=== PATIENT | male | born 1930 | race Two or more races ===

== ENCOUNTER 2016-07-07 21:06 | Inpatient (IN) | payer MEDICARE, MEDICAID ==
[~2016-07-07] VITALS: Ht 162.6 cm; Wt 65.3 kg
[~2016-07-07 21:06] MED LIST: ASPI81TA31 PO; CALC-822 PO; FINA5TAB3 PO; METF-494 PO; OMEP20CA10 PO; OXYB10TA4 PO; SIMV40TA5 PO; TAMS-3 PO
[2016-07-07] MEDS ORDERED: ONDANSETRON 4 MG/2 ML VIAL IV ONE (22:00)
[2016-07-07] MEDS ORDERED: MORPHINE SULFATE 2 MG/1 ML DISP.SYRIN IV ONE ×3 (22:00→23:00)
[2016-07-07] MEDS ORDERED: LEVO5TAB13 PO (22:03)
[2016-07-07] MEDS ORDERED: ONDANSETRON 4 MG/2 ML VIAL ONE (22:17)
[2016-07-07] MEDS ORDERED: MORPHINE SULFATE 2 MG/1 ML DISP.SYRIN ONE ×3 (22:17→23:06)
[2016-07-07 22:21] LABS: CALCIUM 8.7 mg/dL (8.5-10.1); POTASSIUM 4.7 mmol/L (3.5-5.1)
[2016-07-07 22:28] LABS: ALBUMIN 3.7 g/dL (3.4-5.0); BILIRUBIN,DIRECT 0.1 mg/dL (0.0-0.2); BILIRUBIN,TOTAL 0.3 mg/dL (0.2-1.0); TOTAL PROTEIN, SERUM 7.7 g/dL (6.4-8.2)
[2016-07-07 22:33] LABS: HEMATOCRIT 26.1 % (40.0-50.0); MEAN CORPUSCULAR HEMOGLOBIN 18.3 uug (27.0-31.0); MEAN CORPUSCULAR HGB CONC 31 g/dL (32.0-37.0); MEAN CORPUSCULAR VOLUME 59.8 fL (82.0-92.0); PLATELET COUNT (AUTO) 202 K/uL (150-450); RED BLOOD CELL COUNT(AUTO) 4.37 MIL/uL (4.70-6.10); RED CELL DISTRIBUTION WIDTH 18.4 % (11.5-14.5); WHITE BLOOD COUNT (AUTO) 5.2 K/uL (4.0-11.2)
[2016-07-07 22:51] LABS: EOSINOPHILS % (MANUAL) 3 % (0-8); LYMPHOCYTES % (MANUAL) 32 % (20-40); MONOCYTES % (MANUAL) 14 % (2-10); NEUTROPHILS % (MANUAL) 51 % (42-75); PLATELET ESTIMATE ADEQUATE
[2016-07-07 22:52] LABS: ANISOCYTOSIS 1+; HYPOCHROMASIA 1+; OVALOCYTES 1+
[2016-07-08 00:52] LABS: *BILIRUBIN,URIN NEGATIVE (NEGATIVE); *BLOOD, URINE NEGATIVE (NEGATIVE); *CLARITY,URINE CLEAR (CLEAR); *COLOR,URINE YELLOW (YELLOW); *KETONES,URINE NEGATIVE (NEGATIVE); *PROTEIN,URINE NEGATIVE (NEGATIVE); *UROBILINOGEN,URINE 0.2 E.U./dl (NORMAL); LEUKOCYTE ESTERASE ,URINE NEGATIVE (NEGATIVE); NITRITE, URINE NEGATIVE (NEGATIVE); UGLUCOSE NEGATIVE (NEGATIVE)
[2016-07-08 01:25] LABS: BACTERIA,URINE FEW /HPF (NONE SEEN); RBC,URINE 0-3 /HPF (0-3); SQUAMOUS EPITHELIAL CELL,UR FEW /HPF (NONE SEEN); WBC,URINE 0-3 /HPF (0-3)
[2016-07-08] MEDS ORDERED: ONDANSETRON 4 MG/2 ML VIAL ONE (01:41)
[2016-07-08] MEDS ORDERED: MORPHINE SULFATE 4 MG/1 ML DISP.SYRIN ONE (01:41)
[2016-07-08] MEDS ORDERED: ONDANSETRON 4 MG/2 ML VIAL IV ONE (01:45)
[2016-07-08] MEDS ORDERED: MORPHINE SULFATE 4 MG/1 ML DISP.SYRIN IV ONE (01:45)
[2016-07-08] MEDS ORDERED: HYDROMORPHONE 1 MG/1 ML DISP.SYRIN ONE (02:22)
[2016-07-08] MEDS ORDERED: HYDROMORPHONE 1 MG/1 ML DISP.SYRIN IV ONE (02:30)
--- NOTE | 2016-07-08 02:32 | NUR ---
Call placed to Devaughn Cantor MD on phone with KERRY PUENTES
--- NOTE | 2016-07-08 02:33 | NUR ---
call placed to 2nd floor to obtain a bed. Call back pending.
[2016-07-08 03:09] VITALS: BP 176/73
--- NOTE | 2016-07-08 03:13 | NUR ---
Pt. admitted to Telemetry , under care of STEVEN Bolaños Belongs List completed.
--- NOTE | 2016-07-08 03:30 | NUR ---
patient admitted from ED with diagnosis of neckpain, A/A/OX4, Farsi speaking, denies c/o pain at this time, resp even and unlabored, no SOB/congestion noted, kept comfortable, instructed on use of call light. call light within reach, needs attended.
[2016-07-08] MEDS ORDERED: MAGNESIUM HYDROXIDE 30 ML LIQUID UDC PO PRN (03:45)
[2016-07-08] MEDS ORDERED: ONDANSETRON 4 MG/2 ML VIAL IV PRN (03:45)
[2016-07-08] MEDS ORDERED: MORPHINE SULFATE 2 MG/1 ML DISP.SYRIN IV PRN (03:45)
[2016-07-08] MEDS ORDERED: ACETAMINOPHEN 325 MG TABLET PO PRN (03:45)
[2016-07-08] MEDS ORDERED: Z GUARD REMEDY PASTE 57 GM TUBE TOP PRN (03:45)
[2016-07-08 04:00] VITALS: BP 157/66
[2016-07-08 06:42] LABS: BASOPHILS # (AUTO) 0.1 K/uL (0.0-0.2); BASOPHILS % (AUTO) 1.2 % (0.0-2.0); EOSINOPHILS # (AUTO) 0.1 K/uL (0.0-0.7); EOSINOPHILS % (AUTO) 1.9 % (0.0-7.0); HEMATOCRIT 25.8 % (40.0-50.0); HEMOGLOBIN 7.7 g/dL (14.0-18.0); LYMPHOCYTES # (AUTO) 1.3 K/uL (0.8-4.8); LYMPHOCYTES % (AUTO) 26.6 % (20.5-51.5); MEAN CORPUSCULAR HGB CONC 30 g/dL (32.0-37.0); MEAN CORPUSCULAR VOLUME 60.4 fL (82.0-92.0); MONOCYTES # (AUTO) 0.4 K/uL (0.1-1.30); MONOCYTES % (AUTO) 8.3 % (0.0-11.0); PLATELET COUNT (AUTO) 199 K/uL (150-450); RED BLOOD CELL COUNT(AUTO) 4.27 MIL/uL (4.70-6.10); WHITE BLOOD COUNT (AUTO) 4.9 K/uL (4.0-11.2)
[2016-07-08 07:27] LABS: THYROID STIMULATING HORMONE 3.415 mIU/mL (0.358-3.740)
[2016-07-08 07:28] LABS: EOSINOPHILS % (MANUAL) 2 % (0-8); LYMPHOCYTES % (MANUAL) 23 % (20-40); MONOCYTES % (MANUAL) 7 % (2-10); NEUTROPHILS % (MANUAL) 68 % (42-75)
[2016-07-08 07:29] LABS: ANISOCYTOSIS 2+; HYPOCHROMASIA 2+; PLATELET ESTIMATE ADEQUATE
[2016-07-08 07:33] LABS: ALBUMIN 3.5 g/dL (3.4-5.0); BILIRUBIN,TOTAL 0.4 mg/dL (0.2-1.0); CALCIUM 8.7 mg/dL (8.5-10.1); MAGNESIUM 1.9 mg/dL (1.8-2.4); PHOSPHOROUS 3.5 mg/dL (2.5-4.9); POTASSIUM 4.3 mmol/L (3.5-5.1); TOTAL PROTEIN, SERUM 6.8 g/dL (6.4-8.2)
[2016-07-08] MEDS: ASPIRIN 81 MG TAB.CHEW PO SCH (08:11)
[2016-07-08] MEDS: METFORMIN HCL 500 MG TABLET PO SCH ×2 (08:11→17:11)
[2016-07-08] MEDS: CALCIUM CARB/VITAMIN D 250MG-125UNITS TABLET PO SCH (08:11)
[2016-07-08] MEDS: PANTOPRAZOLE SODIUM 40 MG TABLET.DR PO SCH (08:11)
[2016-07-08] MEDS: OXYBUTYNIN XL 5 MG TABSR PO SCH (08:12)
[2016-07-08] MEDS ORDERED: Medication Not On Formulary EA (Omeprazole 20 MG) PO SCH (09:00)
[2016-07-08] MEDS ORDERED: CALCIUM CITRATE PO SCH (09:00)
[2016-07-08] MEDS ORDERED: [UNRECOGNIZED DRUG - OTHER] PO SCH (09:00)
[2016-07-08] MEDS ORDERED: VITAMIN D3 PO SCH (09:00)
[2016-07-08] MEDS ORDERED: LORATADINE 10 MG TABLET PO PRN (10:30)
[2016-07-08] MEDS: TAMSULOSIN HCL 0.4 MG CAP.SR.24H PO SCH ×2 (11:06→16:16)
[2016-07-08 12:02] VITALS: BP 106/45
[2016-07-08 16:08] VITALS: BP 125/57
--- NOTE | 2016-07-08 17:52 | NUR ---
pt went to [facility] for mri via ambulances in stable condition,
--- NOTE | 2016-07-08 19:45 | NUR ---
ARRIVED FROM [facility] FOR MRI. USHERED TO ROOM PLACED COMFORTABLY ON BED, FAMILY MEMBERS AT BEDSIDE. NO ACUTE DISTRESS NOTED. CALL LIGHT WITHIN REACH. WILL CONTINUE TO MONITOR
[2016-07-08 20:00] VITALS: BP 155/79
--- NOTE | 2016-07-08 20:30 | NUR ---
RECEIVED A CALL FROM RADIOLOGY IN REGARDS TO MRI RESULT. CALLED DR. HELLER, LEFT A MESSAGE. AWAITING FOR CALL BACK. PATIENT IN ROOM, NO ACUTE DISTRESS NOTED. ABLE TO MAKE NEEDS KNOWN
[2016-07-08] MEDS ORDERED: Medication Not On Formulary EA (Levocetirizine Dihydrochloride 5 MG) PO SCH (21:00)
[2016-07-08] MEDS: FINASTERIDE 5 MG TABLET PO SCH (21:10)
[2016-07-08] MEDS: SIMVASTATIN 40 MG TABLET PO SCH (21:11)
--- NOTE | 2016-07-08 21:30 | NUR ---
STILL NO CALL BACK FROM DR. HELLER, PAGED DR. AAYUSH MAX
--- NOTE | 2016-07-08 21:50 | NUR ---
RELAY MRI RESULTS TO DR. LOONEY, NO NEW ORDERS AT THIS TIME. WILL CONTINUE TO MONITOR
[2016-07-09] VITALS (9 sets, daily range): BP systolic 120–155; BP diastolic 46–74
--- NOTE | 2016-07-09 06:13 | NUR ---
NO ACUTE DISTRESS NOTED DURING THE SHIFT. NO S/SX OF BLEEDING NOTED. FARSI SPEAKING BUT ABLE TO UNDERSTAND SIMPLE BELIZEAN. ABLE TO FOLLOW COMMANDS. NEURO CHECK DONE. ALL DUE MEDS GIVEN ORDERED. KEPT COMFORTABLE AT ALL TIMES. CALL LIGHT WITHIN REACH Addendum: 07/09/16 at 0619 by ANDREI MCGINNIS RN ON TELE WITH SINUS RHYTHM
[2016-07-09] MEDS: PANTOPRAZOLE SODIUM 40 MG TABLET.DR PO SCH (06:21)
[2016-07-09 07:32] LABS: BASOPHILS % (AUTO) 0.7 % (0.0-2.0); CALCIUM 8.8 mg/dL (8.5-10.1); CREATININE 0.9 mg/dL (0.6-1.3); EOSINOPHILS # (AUTO) 0.1 K/uL (0.0-0.7); EOSINOPHILS % (AUTO) 3.1 % (0.0-7.0); HEMATOCRIT 26.2 % (40.0-50.0); HEMOGLOBIN 7.9 g/dL (14.0-18.0); LYMPHOCYTES # (AUTO) 1.3 K/uL (0.8-4.8); LYMPHOCYTES % (AUTO) 27.9 % (20.5-51.5); MEAN CORPUSCULAR HGB CONC 30 g/dL (32.0-37.0); MEAN CORPUSCULAR VOLUME 60.1 fL (82.0-92.0); MONOCYTES # (AUTO) 0.4 K/uL (0.1-1.30); MONOCYTES % (AUTO) 8.2 % (0.0-11.0); NEUTROPHILS # (AUTO) 2.7 K/uL (1.8-8.9); NEUTROPHILS % (AUTO) 60.1 % (38.5-71.5); PLATELET COUNT (AUTO) 212 K/uL (150-450); RED BLOOD CELL COUNT(AUTO) 4.36 MIL/uL (4.70-6.10); RED CELL DISTRIBUTION WIDTH 18.8 % (11.5-14.5); WHITE BLOOD COUNT (AUTO) 4.5 K/uL (4.0-11.2)
--- NOTE | 2016-07-09 08:00 | NUR ---
Awake, alert, oriented x 4, complaining of neck pain. 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
[2016-07-09] MEDS: METFORMIN HCL 500 MG TABLET PO SCH ×2 (09:00→17:47)
[2016-07-09] MEDS: ASPIRIN 81 MG TAB.CHEW PO SCH (09:00)
[2016-07-09] MEDS: CALCIUM CARB/VITAMIN D 250MG-125UNITS TABLET PO SCH (09:01)
[2016-07-09] MEDS: TAMSULOSIN HCL 0.4 MG CAP.SR.24H PO SCH ×2 (09:01→17:46)
[2016-07-09] MEDS: OXYBUTYNIN XL 5 MG TABSR PO SCH (09:01)
[2016-07-09] MEDS: HYDROCODONE/APAP 5-325MG TABLET PO PRN (09:02)
[2016-07-09 10:56] LABS: ANISOCYTOSIS 2+; HYPOCHROMASIA 3+
[2016-07-09 10:57] LABS: OVALOCYTES 2+
[2016-07-09 11:00] LABS: STOMATOCYTES 1+; TARGET CELLS 1+
--- NOTE | 2016-07-09 12:28 | NUR ---
Still with neck pain/headache not relieved with [place]. Morphine IV given as ordered
[2016-07-09] MEDS ORDERED: GOLYTELY 4000 ML BOTTLE PO ONE (12:30)
[2016-07-09] MEDS ORDERED: MAGNESIUM CITRATE 296 ML BOTTLE PO ONE (12:30)
[2016-07-09] MEDS ORDERED: KETOROLAC TROMETHAMINE 15 MG INJ IVP ONE (14:00)
--- NOTE | 2016-07-09 14:03 | NUR ---
Dr. Linares seen and examined patient, spoke with spouse and daughter. Still with neck pain/headache. Toradol given as ordered with relief
--- NOTE | 2016-07-09 16:48 | NUR ---
Hgb 7.9/ Hct 26.2. Dr. Sifuentes with orders for 1 unit of PRBC started. For EGD/Colonoscopy tomorrow, consent signed by patient. Bowel prep started
--- NOTE | 2016-07-09 18:31 | NUR ---
PRBC transfusing, no reaction noted. Endorsed for further care
--- NOTE | 2016-07-09 19:30 | NUR ---
BLOOD TRANSFUSION STILL ONGOING. FAMILY MEMBERS AT BEDSIDE. NO ADVERSE REACTION NOTED. WILL CONTINUE TO MONITOR V/S. ENCOURAGED TO FINISH GOLYTELY. AWARE ABOUT EGD AND COLONOSCOPY FOR TOMORROW. CALL LIGHT WITHIN REACH. WILL CONTINUE TO MONITOR
--- NOTE | 2016-07-09 20:01 | NUR ---
BLOOD TRANSFUSION FINISHED. TOLERATED WELL. V/S STABLE. NO ADVERSE REACTION NOTED. WILL CONTINUE TO MONITOR
--- NOTE | 2016-07-09 20:30 | NUR ---
STOOL SPECIMEN SENT TO LAB
[2016-07-09] MEDS: SIMVASTATIN 40 MG TABLET PO SCH (21:07)
[2016-07-09] MEDS: FINASTERIDE 5 MG TABLET PO SCH (21:07)
[2016-07-09 22:01] LABS: *OCCULT BLOOD STOOL NEGATIVE (NEGATIVE)
--- NOTE | 2016-07-09 22:45 | NUR ---
FINISHED GOLYTELY ORDERED. TOLERATED WELL. ASSISTED TO RESTROOM. WILL CONTINUE TO MONITOR
[2016-07-10 04:28] VITALS: BP 133/63
--- NOTE | 2016-07-10 06:33 | NUR ---
PATIENT HAD SEVERAL BOWEL MOVEMENTS. NOW BOWEL MOVEMENT CLEAR, SEEN BY RN AND BEDSIDE NURSE. KEPT ON NPO POST MIDNIGHT. CONSENTS SIGNED. BOWEL PREP DONE. KEPT COMFORTABLE AT ALL TIMES. NEEDS ATTENDED. FAMILY MEMBER AT BEDSIDE. CALL LIGHT WITHIN REACH
[2016-07-10] MEDS: PANTOPRAZOLE SODIUM 40 MG TABLET.DR PO SCH (07:00)
--- NOTE | 2016-07-10 07:15 | NUR ---
Patient went down for EGD /Colonoscopy with OR staff.
[2016-07-10] MEDS ORDERED: LIDOCAINE HCL 1% 20 ML VIAL MC ONE (07:27)
[2016-07-10] MEDS ORDERED: IV LACTATED RINGERS SOLUTION 1,000 ML BAG MC ONE (07:27)
[2016-07-10] MEDS ORDERED: PROPOFOL 200 MG/20 ML BOTTLE IV ONE (07:27)
--- NOTE | 2016-07-10 08:40 | NUR ---
Patient returned to unit with two RNs from OR. Patient EGD found unremarkable only noting gastritis. Rectal biopsy done. Patient had minimal bleeding (~15 mls) from rectum when ambulating from bed to bathroom. Patient has at the bedside.
[2016-07-10] MEDS: ASPIRIN 81 MG TAB.CHEW PO SCH (08:59)
[2016-07-10] MEDS: CALCIUM CARB/VITAMIN D 250MG-125UNITS TABLET PO SCH (08:59)
[2016-07-10] MEDS: OXYBUTYNIN XL 5 MG TABSR PO SCH (08:59)
[2016-07-10] MEDS: METFORMIN HCL 500 MG TABLET PO SCH (08:59)
[2016-07-10] MEDS: TAMSULOSIN HCL 0.4 MG CAP.SR.24H PO SCH (08:59)
[2016-07-10 11:17] VITALS: BP 143/65
[2016-07-10 11:51] LABS: BASOPHILS % (AUTO) 0.7 % (0.0-2.0); EOSINOPHILS # (AUTO) 0.1 K/uL (0.0-0.7); EOSINOPHILS % (AUTO) 1.6 % (0.0-7.0); HEMATOCRIT 32.8 % (40.0-50.0); HEMOGLOBIN 9.8 g/dL (14.0-18.0); LYMPHOCYTES # (AUTO) 1.1 K/uL (0.8-4.8); LYMPHOCYTES % (AUTO) 20.3 % (20.5-51.5); MEAN CORPUSCULAR HEMOGLOBIN 18.6 uug (27.0-31.0); MEAN CORPUSCULAR HGB CONC 30 g/dL (32.0-37.0); MEAN CORPUSCULAR VOLUME 62.3 fL (82.0-92.0); MONOCYTES # (AUTO) 0.6 K/uL (0.1-1.30); MONOCYTES % (AUTO) 10.4 % (0.0-11.0); NEUTROPHILS # (AUTO) 3.8 K/uL (1.8-8.9); PLATELET COUNT (AUTO) 240 K/uL (150-450); RED BLOOD CELL COUNT(AUTO) 5.27 MIL/uL (4.70-6.10); WHITE BLOOD COUNT (AUTO) 5.6 K/uL (4.0-11.2)
[2016-07-10 12:42] LABS: ANISOCYTOSIS 3+; HYPOCHROMASIA 3+; LYMPHOCYTES % (MANUAL) 21 % (20-40); MONOCYTES % (MANUAL) 11 % (2-10); NEUTROPHILS % (MANUAL) 68 % (42-75); PLATELET ESTIMATE ADEQUATE
[2016-07-10] MEDS: HYDROCODONE/APAP 5-325MG TABLET PO PRN (14:01)
--- NOTE | 2016-07-10 14:12 | NUR ---
Patient discharged from unit with . Patient in no noted distress. Calm and cooperative. Compliant with care. Educated regarding discharge plan including medication regimen. health services coordinator assisted with translation. Patient verbalizes understanding.
[2016-07-10 15:12] VITALS: BP 143/65
== END 2016-07-10 13:35 | disposition home or self-care (01) | DRG 393 ==
LOC: ER 21:06 → MED 07-08 02:48 → TELE 07-08 03:01 → MED 07-09 13:20
PROVIDERS: ADMIT Contractor
PROC: 30233N1 Transfusion of Nonautologous Red Blood Cells into Peripheral Vein, Percutaneous Approach (ICD-10-PCS; 2016-07-09)
PROC: 0DBP8ZX Excision of Rectum, Via Natural or Artificial Opening Endoscopic, Diagnostic (ICD-10-PCS; 2016-07-10)
PROC: 0DBB8ZX Excision of Ileum, Via Natural or Artificial Opening Endoscopic, Diagnostic (ICD-10-PCS; 2016-07-10)
PROC: 0DB68ZX Excision of Stomach, Via Natural or Artificial Opening Endoscopic, Diagnostic (ICD-10-PCS; principal; 2016-07-10 07:27)
PROC: 0DBM8ZX Excision of Descending Colon, Via Natural or Artificial Opening Endoscopic, Diagnostic (ICD-10-PCS; 2016-07-10 07:27)
DX: K55.9 Vascular disorder of intestine, unspecified (principal); I63.9 Cerebral infarction, unspecified; K62.6 Ulcer of anus and rectum; K29.70 Gastritis, unspecified, without bleeding; R51 Headache; E11.9 Type 2 diabetes mellitus without complications; I10 Essential (primary) hypertension; N40.0 Benign prostatic hyperplasia without lower urinary tract symptoms; K21.9 Gastro-esophageal reflux disease without esophagitis; D50.9 Iron deficiency anemia, unspecified; E03.9 Hypothyroidism, unspecified; E78.5 Hyperlipidemia, unspecified; K64.1 Second degree hemorrhoids; B96.81 Helicobacter pylori [H. pylori] as the cause of diseases classified elsewhere
CPT/HCPCS: 36415; 43235; 70030-TC; 70450; 70551; 71010; 72125; 83550; 83735; 84100; 84443; 85002; 85025; 85730; 86850; 86900; 86901; 86920; 93005; A4217; A4663; J1170; J1885; J2270; J2405; J3490; J7050; J7120; P9016-BL; P9021

== ENCOUNTER 2017-05-11 18:50 | Inpatient (IN) | payer MEDICARE, OTHER ==
[~2017-05-11] VITALS: Ht 167.6 cm; Wt 62.1 kg
[~2017-05-11 18:50] MED LIST changes: -ASPI81TA31 PO; +LEVO5TAB13 PO
[2017-05-11] MEDS ORDERED: MECL12.582 PO (19:12)
--- NOTE | 2017-05-11 19:35 | NUR ---
Pt is noted alert, responsive as report is received from the off going nurse that came in c/o Headache x4days and s/p dizziness. His care continue while monitor.
[2017-05-11 20:08] LABS: BASOPHILS # (AUTO) 0.1 K/uL (0.0-8.0); BASOPHILS % (AUTO) 0.8 % (0.0-2.0); EOSINOPHILS # (AUTO) 0.1 K/uL (0.0-0.7); EOSINOPHILS % (AUTO) 0.9 % (0.0-7.0); HEMATOCRIT 40.6 % (36.7-47.1); HEMOGLOBIN 14.1 g/dL (12.5-16.3); LYMPHOCYTES # (AUTO) 1.5 K/uL (20.0-40.0); LYMPHOCYTES % (AUTO) 16.7 % (20.5-51.5); MEAN CORPUSCULAR HGB CONC 35 g/dL (32.5-36.3); MEAN CORPUSCULAR VOLUME 92.4 fL (73.0-96.2); MONOCYTES # (AUTO) 0.6 K/uL (2.0-10.0); NEUTROPHILS # (AUTO) 6.6 K/uL (1.8-8.9); NEUTROPHILS % (AUTO) 74.6 % (38.5-71.5); PLATELET COUNT (AUTO) 153 K/uL (152-348); WHITE BLOOD COUNT (AUTO) 8.8 K/uL (3.6-10.2)
[2017-05-11 20:20] LABS: CARBON DIOXIDE 29 mmol/L (21-32); CHLORIDE 102 mmol/L (98-107); CREATININE 0.8 mg/dL (0.6-1.3); GLUCOSE 113 mg/dL (74-106); UREA NITROGEN, BLOOD 21 mg/dL (7-18)
[2017-05-11 20:26] LABS: ALANINE AMINOTRANSFERASE 25 U/L (16-63); ALKALINE PHOSPHATASE 75 U/L (50-136); ASPARTATE AMINOTRANSFERASE 12 U/L (15-37); BILIRUBIN,DIRECT 0.1 mg/dL (0.0-0.2); BILIRUBIN,TOTAL 0.6 mg/dL (0.2-1.0); TOTAL PROTEIN, SERUM 6.4 g/dL (6.4-8.2)
--- NOTE | 2017-05-11 21:25 | NUR ---
Pt is noted off the unit to CT. his care continue.
[2017-05-11 21:26] LABS: *BILIRUBIN,URIN NEGATIVE (NEGATIVE); *BLOOD, URINE NEGATIVE (NEGATIVE); *CLARITY,URINE SLIGHTLY CLOUDY (CLEAR); *COLOR,URINE YELLOW (YELLOW); *KETONES,URINE NEGATIVE (NEGATIVE); *PROTEIN,URINE NEGATIVE (NEGATIVE); *UROBILINOGEN,URINE 0.2 E.U./dl (NORMAL); LEUKOCYTE ESTERASE ,URINE NEGATIVE (NEGATIVE); NITRITE, URINE NEGATIVE (NEGATIVE); PH,URINE 5.5 (5.0-8.0); UGLUCOSE NEGATIVE (NEGATIVE)
[2017-05-11 21:31] LABS: BACTERIA,URINE NONE SEEN /HPF (NONE SEEN); RBC,URINE 0-3 /HPF (0-3); SQUAMOUS EPITHELIAL CELL,UR NONE SEEN /HPF (NONE SEEN); WBC,URINE 0-3 /HPF (0-3)
--- NOTE | 2017-05-11 23:00 | NUR ---
Pt remain full code with as CT is done. His care continue as awaits Test results.
[2017-05-11] MEDS ORDERED: MECLIZINE HCL 12.5 MG TABLET PO PRN (23:15)
[2017-05-11] MEDS ORDERED: HYDROCODONE/APAP 5-325MG TABLET PO PRN (23:15)
[2017-05-11] MEDS ORDERED: ONDANSETRON 4 MG/2 ML VIAL IV PRN (23:15)
[2017-05-11] MEDS ORDERED: TEMAZEPAM 15 MG CAPSULE PO PRN (23:15)
[2017-05-11] MEDS ORDERED: TAMSULOSIN HCL 0.4 MG CAP.SR.24H PO SCH (23:15)
[2017-05-11] MEDS ORDERED: MAGNESIUM HYDROXIDE 30 ML LIQUID UDC PO PRN (23:15)
[2017-05-11] MEDS ORDERED: ACETAMINOPHEN 325 MG TABLET PO PRN (23:15)
--- NOTE | 2017-05-11 23:40 | NUR ---
Pt remain alert, responsive as new orders noted for pt to be admitted top Tele under the care off DR. Baker . His care continue.
--- NOTE | 2017-05-11 23:45 | NUR ---
Pt is noted resting in bed as report is given to the 2nd floor receiving nurse as pt is been [facility] under the care off DR. Malone. His care continue .
--- NOTE | 2017-05-12 00:10 | NUR ---
Pt is noted off the unit to 2nd floor room 209 as he is been admitted .
[2017-05-12 00:37] VITALS: BP 126/54
--- NOTE | 2017-05-12 00:40 | NUR ---
PATIENT IS ASLEEP WITH NO SIGNS OR SYMPTOMS OF PAIN OR DISCOMFORT. NO RESPIRATORY DISTRESS. CALL LIGHT WITHIN REACH
[2017-05-12] MEDS ORDERED: INFLUENZA VACCINE 2017-2018 0.5 ML DISP.SYRIN IM ONE (02:00)
[2017-05-12] MEDS ORDERED: TAMSULOSIN HCL 0.4 MG CAP.SR.24H ONE (02:14)
[2017-05-12] MEDS ORDERED: HYDROCODONE/APAP 5-325MG TABLET ONE (02:25)
[2017-05-12 04:00] VITALS: BP 104/51
[2017-05-12] MEDS ORDERED: PANTOPRAZOLE SODIUM 40 MG TABLET.DR PO SCH (07:00)
[2017-05-12] MEDS ORDERED: TEMAZEPAM 7.5 MG CAPSULE PO PRN (07:30)
[2017-05-12 07:38] LABS: THYROID STIMULATING HORMONE 1.574 mIU/mL (0.358-3.740)
--- NOTE | 2017-05-12 08:00 | NUR ---
AWAKE ALERT SOME ROMANSH MOSTLY FARSI IS AT THE BEDSIDE AT THIS TIME ASSISTED TO THE BATHROOM AND VOIDING WELL DENIES PAIN OR DISCOMFORTS NOT IN DISTRESS AT THIS TIME.
[2017-05-12 08:02] LABS: ALANINE AMINOTRANSFERASE 20 U/L (16-63); ALKALINE PHOSPHATASE 65 U/L (50-136); ASPARTATE AMINOTRANSFERASE 21 U/L (15-37); BILIRUBIN,TOTAL 0.5 mg/dL (0.2-1.0); CARBON DIOXIDE 30 mmol/L (21-32); CHLORIDE 104 mmol/L (98-107); CHOLESTEROL 171 mg/dL (<200); CREATININE 0.8 mg/dL (0.6-1.3); GLUCOSE 109 mg/dL (74-106); HDL CHOLESTEROL 76 mg/dL (40-60); MAGNESIUM 1.9 mg/dL (1.8-2.4); PHOSPHOROUS 3.9 mg/dL (2.5-4.9); POTASSIUM 4.5 mmol/L (3.5-5.1); TRIGLYCERIDES 73 MG/DL (30-150); UREA NITROGEN, BLOOD 20 mg/dL (7-18)
[2017-05-12 08:14] LABS: BASOPHILS % (AUTO) 0.6 % (0.0-2.0); EOSINOPHILS # (AUTO) 0.1 K/uL (0.0-0.7); EOSINOPHILS % (AUTO) 1.1 % (0.0-7.0); HEMATOCRIT 40.6 % (36.7-47.1); HEMOGLOBIN 13.9 g/dL (12.5-16.3); LYMPHOCYTES # (AUTO) 1.3 K/uL (20.0-40.0); MEAN CORPUSCULAR HEMOGLOBIN 31.5 uug (23.8-33.4); MEAN CORPUSCULAR HGB CONC 34 g/dL (32.5-36.3); MEAN CORPUSCULAR VOLUME 92.3 fL (73.0-96.2); MONOCYTES # (AUTO) 0.5 K/uL (2.0-10.0); MONOCYTES % (AUTO) 7.6 % (0.0-11.0); NEUTROPHILS # (AUTO) 4.9 K/uL (1.8-8.9); NEUTROPHILS % (AUTO) 71.7 % (38.5-71.5); PLATELET COUNT (AUTO) 146 K/uL (152-348); WHITE BLOOD COUNT (AUTO) 6.8 K/uL (3.6-10.2)
[2017-05-12] MEDS ORDERED: CALCIUM CITRATE PO SCH (09:00)
[2017-05-12] MEDS ORDERED: ASPIRIN EC 325 MG TABLET.DR PO SCH (09:00)
[2017-05-12] MEDS ORDERED: [UNRECOGNIZED DRUG - OTHER] PO SCH (09:00)
[2017-05-12] MEDS ORDERED: VITAMIN D3 PO SCH (09:00)
[2017-05-12] MEDS ORDERED: OXYBUTYNIN XL 5 MG TABSR PO SCH (09:00)
[2017-05-12] MEDS ORDERED: CALCIUM CITRA-VITAMIN D 315 MG-250 UNITS TABLET PO SCH (09:00)
[2017-05-12 09:08] LABS: IRON, SERUM 83 ug/dL (50-175)
--- NOTE | 2017-05-12 09:45 | NUR ---
SPOKE WITH PATIENTS AT THE BEDSIDE RE STATUS OF PNEUMONIA/FLU VACCINES LAST TAKEN AND SHE STATED THAT PATIENT TOOK BOTH VACCINES IN MARCH OF 2017 PHARMACY NOTIFIED ALSO STATED THAT HER PHARMACY IS [facility] HERE AT [place].
--- NOTE | 2017-05-12 10:00 | NUR ---
ECHO COMPLETED ORDERED WITH 55 %EF AT THIS TIME IS AT THE BEDSIDE.
[2017-05-12] MEDS ORDERED: INSULIN REGULAR, HUMAN 300 UNIT/3 ML VIAL SQ PRN (10:15)
[2017-05-12] MEDS ORDERED: DEXTROSE 50% 50 ML DISP.SYRIN IV PRN (10:15)
[2017-05-12 11:13] VITALS: BP 114/51
[2017-05-12] MEDS ORDERED: BLOOD SUGAR DIAGNOSTIC 1 EACH STRIP VI SCH (11:30)
[2017-05-12] MEDS ORDERED: PNEUMOCOCCAL 23-VAL P-SAC VAC 0.5 ML VIAL IM ONE (13:00)
--- NOTE | 2017-05-12 14:07 | NUR ---
PATIENT SEEN AND EXAMINED BY LOAN DRYWALL APPLICATION SUPERVISOR WITH NEW ORDERS AND NOTED
[2017-05-12 15:14] VITALS: BP 108/45
--- NOTE | 2017-05-12 15:40 | NUR ---
PATIENT AND HIS WANTS TO LEAVE AGAINST MEDICAL ADVISE AND LOAN FENDER FINISHER SPOKE WITH PATIENT AND HIS AND ALSO THE COBBLER SOLE NOTIFIED THEY ARE INSISTENT ON LEAVING AGAINST MEDICAL ADVISE
--- NOTE | 2017-05-12 16:00 | NUR ---
AMA FORMS COMPLETED BY HIM AND HIS AND DAUGHTER IS AT THE BEDSIDE AND PATIENT STATED DOES NOT WANT TO WAIT FOR DISCHARGE PAPER WORK JUST WANT TO LEAVE.
--- NOTE | 2017-05-12 16:05 | NUR ---
PATIENT LEFT GAURAV REFUSES TO WAIT FOR THE DISCHARGE PAPERS WITH ALL HIS PERSONAL BELONGINGS.
[2017-05-12] MEDS ORDERED: METFORMIN XR 500 MG TAB.SR.24H PO SCH (18:00)
[2017-05-12] MEDS ORDERED: TAMSULOSIN HCL 0.4 MG CAP.SR.24H PO SCH (21:00)
[2017-05-12] MEDS ORDERED: SIMVASTATIN 40 MG TABLET PO SCH (21:00)
[2017-05-12] MEDS ORDERED: CETIRIZINE HCL 10 MG TABLET PO SCH (21:00)
[2017-05-12] MEDS ORDERED: DOCUSATE SODIUM 250 MG CAPSULE PO SCH (21:00)
[2017-05-12] MEDS ORDERED: FINASTERIDE 5 MG TABLET PO SCH (21:00)
[2017-05-12] MEDS ORDERED: DOCUSATE SODIUM 100 MG CAPSULE PO SCH (21:00)
[2017-05-12] MEDS ORDERED: Medication Not On Formulary EA (Levocetirizine Dihydrochloride 5 MG) PO SCH (21:00)
== END 2017-05-12 15:57 | disposition left against medical advice (07) | DRG 149 ==
LOC: ER 18:50 → TELE 05-12 00:29
PROVIDERS: ADMIT Internal Medicine; ATTEND Internal Medicine
DX: H83.09 Labyrinthitis, unspecified ear (principal); I21.A1 Myocardial infarction type 2; E44.0 Moderate protein-calorie malnutrition; D69.6 Thrombocytopenia, unspecified; E11.65 Type 2 diabetes mellitus with hyperglycemia; E67.8 Other specified hyperalimentation; I50.32 Chronic diastolic (congestive) heart failure; F07.81 Postconcussional syndrome; M48.02 Spinal stenosis, cervical region; E78.00 Pure hypercholesterolemia, unspecified; K21.9 Gastro-esophageal reflux disease without esophagitis; N40.0 Benign prostatic hyperplasia without lower urinary tract symptoms; I35.0 Nonrheumatic aortic (valve) stenosis; I35.1 Nonrheumatic aortic (valve) insufficiency; M54.2 Cervicalgia; Z91.81 History of falling; Z68.22 Body mass index [BMI] 22.0-22.9, adult; M46.02 Spinal enthesopathy, cervical region; Z79.84 Long term (current) use of oral hypoglycemic drugs; I11.0 Hypertensive heart disease with heart failure
CPT/HCPCS: 36415; 70030-TC; 70450; 71010; 72125; 83550; 83735; 84100; 84443; 85025; 85730; 90732; 93005; 93307; A4663; J1815

== ENCOUNTER 2017-06-28 21:01 | Emergency (ER) | payer MEDICARE, OTHER ==
[~2017-06-28] VITALS: Ht 167.6 cm; Wt 63.5 kg
[~2017-06-28 21:01] MED LIST changes: +MECL12.582 PO
[2017-06-28] MEDS: IV NORMAL SALINE 500 ML BAG IV ONE (21:34)
[2017-06-28] MEDS: ACETAMINOPHEN ES 500 MG TABLET PO ONE (21:34)
[2017-06-28 21:38] LABS: BASOPHILS % (AUTO) 0.6 % (0.0-2.0); EOSINOPHILS # (AUTO) 0.1 K/uL (0.0-0.7); EOSINOPHILS % (AUTO) 1.6 % (0.0-7.0); HEMATOCRIT 38.3 % (36.7-47.1); HEMOGLOBIN 13.2 g/dL (12.5-16.3); LYMPHOCYTES # (AUTO) 1.4 K/uL (20.0-40.0); LYMPHOCYTES % (AUTO) 21.9 % (20.5-51.5); MEAN CORPUSCULAR HEMOGLOBIN 31.6 uug (23.8-33.4); MEAN CORPUSCULAR HGB CONC 34 g/dL (32.5-36.3); MEAN CORPUSCULAR VOLUME 91.8 fL (73.0-96.2); MONOCYTES # (AUTO) 0.5 K/uL (2.0-10.0); MONOCYTES % (AUTO) 7.3 % (0.0-11.0); NEUTROPHILS # (AUTO) 4.5 K/uL (1.8-8.9); NEUTROPHILS % (AUTO) 68.6 % (38.5-71.5); PLATELET COUNT (AUTO) 179 K/uL (152-348); RED BLOOD CELL COUNT(AUTO) 4.17 MIL/uL (4.06-5.63); WHITE BLOOD COUNT (AUTO) 6.5 K/uL (3.6-10.2)
[2017-06-28] MEDS ORDERED: ACETAMINOPHEN ES 500 MG TABLET ONE (21:46)
[2017-06-28 22:10] LABS: CARBON DIOXIDE 28 mmol/L (21-32); CHLORIDE 101 mmol/L (98-107); GLUCOSE 162 mg/dL (74-106); POTASSIUM 4.1 mmol/L (3.5-5.1); UREA NITROGEN, BLOOD 17 mg/dL (7-18)
[2017-06-28 22:16] LABS: ALANINE AMINOTRANSFERASE 18 U/L (16-63); ALKALINE PHOSPHATASE 108 U/L (50-136); ASPARTATE AMINOTRANSFERASE 16 U/L (15-37); BILIRUBIN,DIRECT 0.1 mg/dL (0.0-0.2); BILIRUBIN,TOTAL 0.3 mg/dL (0.2-1.0)
[2017-06-28 22:39] LABS: *BILIRUBIN,URIN NEGATIVE (NEGATIVE); *BLOOD, URINE Trace-intact (NEGATIVE); *CLARITY,URINE CLEAR (CLEAR); *COLOR,URINE YELLOW (YELLOW); *KETONES,URINE NEGATIVE (NEGATIVE); *PROTEIN,URINE NEGATIVE (NEGATIVE); *UROBILINOGEN,URINE 0.2 E.U./dl (NORMAL); LEUKOCYTE ESTERASE ,URINE NEGATIVE (NEGATIVE); NITRITE, URINE NEGATIVE (NEGATIVE); UGLUCOSE NEGATIVE (NEGATIVE)
[2017-06-28 22:42] LABS: BACTERIA,URINE NONE SEEN /HPF (NONE SEEN); RBC,URINE 0-3 /HPF (0-3); SQUAMOUS EPITHELIAL CELL,UR NONE SEEN /HPF (NONE SEEN); WBC,URINE 0-3 /HPF (0-3)
--- NOTE | 2017-06-29 00:02 | NUR ---
Patient does not wish to proceed with medical care recommended by Dr. Ramey. Patient given information related to possible complications, up to and including , which could occur as a result of leaving the hospital at this time. Patient verbalizes understanding of risks involved due to leaving against medical advice. Patient has signed AMA form.
[2017-06-29 00:04] VITALS: BP 148/73
== END 2017-06-29 00:05 | disposition left against medical advice (07) ==
LOC: ER 21:02
DX: R55 Syncope and collapse (principal); R42 Dizziness and giddiness; M25.511 Pain in right shoulder; I10 Essential (primary) hypertension; E78.00 Pure hypercholesterolemia, unspecified; K21.9 Gastro-esophageal reflux disease without esophagitis; N40.0 Benign prostatic hyperplasia without lower urinary tract symptoms; E11.9 Type 2 diabetes mellitus without complications
CPT/HCPCS: 36415; 70030-TC; 70450; 71045; 72125; 73030; 85025; 85730; 93005; A4663; A9150; J7040

== ENCOUNTER 2017-07-08 11:49 | Emergency (ER) | payer MEDICARE, OTHER ==
[~2017-07-08] VITALS: Ht 170.2 cm; Wt 72.6 kg
--- NOTE | 2017-07-08 12:52 | NUR ---
SALINE LOCK PLACED, EKG DONE, MONITOR SHOWS NSR,PO2=97% IN ROOM AIR.
[2017-07-08 12:55] LABS: BASOPHILS % (AUTO) 0.7 % (0.0-2.0); EOSINOPHILS # (AUTO) 0.1 K/uL (0.0-0.7); EOSINOPHILS % (AUTO) 1.1 % (0.0-7.0); HEMATOCRIT 41.2 % (36.7-47.1); HEMOGLOBIN 14.3 g/dL (12.5-16.3); LYMPHOCYTES # (AUTO) 1.3 K/uL (20.0-40.0); MEAN CORPUSCULAR HEMOGLOBIN 31.8 uug (23.8-33.4); MEAN CORPUSCULAR HGB CONC 35 g/dL (32.5-36.3); MEAN CORPUSCULAR VOLUME 91.4 fL (73.0-96.2); MONOCYTES # (AUTO) 0.5 K/uL (2.0-10.0); MONOCYTES % (AUTO) 8.1 % (0.0-11.0); NEUTROPHILS # (AUTO) 4.3 K/uL (1.8-8.9); NEUTROPHILS % (AUTO) 69.1 % (38.5-71.5); PLATELET COUNT (AUTO) 180 K/uL (152-348); WHITE BLOOD COUNT (AUTO) 6.2 K/uL (3.6-10.2)
[2017-07-08 13:06] LABS: CARBON DIOXIDE 31 mmol/L (21-32); CHLORIDE 101 mmol/L (98-107); GLUCOSE 120 mg/dL (74-106); POTASSIUM 4.7 mmol/L (3.5-5.1); UREA NITROGEN, BLOOD 15 mg/dL (7-18)
[2017-07-08 13:18] LABS: ALANINE AMINOTRANSFERASE 30 U/L (16-63); ALKALINE PHOSPHATASE 80 U/L (50-136); ASPARTATE AMINOTRANSFERASE 29 U/L (15-37); BILIRUBIN,DIRECT 0.1 mg/dL (0.0-0.2); BILIRUBIN,TOTAL 0.4 mg/dL (0.2-1.0); TOTAL PROTEIN, SERUM 7.6 g/dL (6.4-8.2)
--- NOTE | 2017-07-08 14:01 | NUR ---
CLEANSED THE SKIN TEAR ON THE FOREHEAD AND PLACED TRIPLE NATIBIOTIC PER PT REQUEST AND PLACED THE BANDAID.
[2017-07-08] MEDS ORDERED: NEOMY/BACITRA/POLYMYXIN B OINT UD PACKET TP ONE ×2 (14:23→15:00)
--- NOTE | 2017-07-08 14:40 | NUR ---
MSE COMPLETED, PT D/C'D HOME, ACI GIVEN. PT AMBULATED W/O DIFF/TOOK ALL BELONGINGS.
[2017-07-08 14:41] VITALS: BP 144/66
== END 2017-07-08 14:42 | disposition home or self-care (01) ==
LOC: ER 11:54
DX: S09.90XA Unspecified injury of head, initial encounter (principal); R55 Syncope and collapse; K21.9 Gastro-esophageal reflux disease without esophagitis; E11.9 Type 2 diabetes mellitus without complications; Z79.84 Long term (current) use of oral hypoglycemic drugs; Z79.899 Other long term (current) drug therapy; W19.XXXA Unspecified fall, initial encounter; Y92.89 Other specified places as the place of occurrence of the external cause; Y93.89 Activity, other specified; Y99.8 Other external cause status
CPT/HCPCS: 36415; 70030-TC; 70450; 72125; 85025; 85730; 93005; A4663

== ENCOUNTER 2017-10-23 10:02 | Inpatient (IN) | payer MEDICARE, OTHER ==
[~2017-10-23] VITALS: Ht 165.1 cm; Wt 68.0 kg
[2017-10-23] MEDS ORDERED: IV NS 1000 ML 1,000 ML IV ONE (10:30)
[2017-10-23] MEDS ORDERED: ONDANSETRON 4 MG/2 ML VIAL IV ONE ×2 (10:30→11:45)
[2017-10-23] MEDS ORDERED: MORPHINE SULFATE 2 MG/1 ML DISP.SYRIN IV ONE (10:30)
[2017-10-23] MEDS ORDERED: ONDANSETRON 4 MG/2 ML VIAL ONE ×2 (10:32→12:34)
[2017-10-23] MEDS ORDERED: MORPHINE SULFATE 2 MG/1 ML DISP.SYRIN ONE (10:33)
[2017-10-23 10:44] LABS: BASOPHILS % (AUTO) 0.9 % (0.0-2.0); EOSINOPHILS # (AUTO) 0.1 K/uL (0.0-0.7); EOSINOPHILS % (AUTO) 1.6 % (0.0-7.0); HEMOGLOBIN 13.5 g/dL (12.5-16.3); LYMPHOCYTES # (AUTO) 1.3 K/uL (20.0-40.0); LYMPHOCYTES % (AUTO) 23.4 % (20.5-51.5); MEAN CORPUSCULAR HEMOGLOBIN 31.3 uug (23.8-33.4); MEAN CORPUSCULAR HGB CONC 35 g/dL (32.5-36.3); MONOCYTES # (AUTO) 0.5 K/uL (2.0-10.0); MONOCYTES % (AUTO) 8.9 % (0.0-11.0); NEUTROPHILS # (AUTO) 3.5 K/uL (1.8-8.9); NEUTROPHILS % (AUTO) 65.2 % (38.5-71.5); PLATELET COUNT (AUTO) 241 K/uL (152-348); RED BLOOD CELL COUNT(AUTO) 4.33 MIL/uL (4.06-5.63); WHITE BLOOD COUNT (AUTO) 5.4 K/uL (3.6-10.2)
[2017-10-23] MEDS ORDERED: MORPHINE SULFATE 4 MG/1 ML DISP.SYRIN IV ONE (10:45)
[2017-10-23] MEDS ORDERED: MORPHINE SULFATE 4 MG/1 ML DISP.SYRIN ONE (10:46)
[2017-10-23 10:56] LABS: CARBON DIOXIDE 27 mmol/L (21-32); CHLORIDE 102 mmol/L (98-107); CREATININE 0.7 mg/dL (0.6-1.3); GLUCOSE 132 mg/dL (74-106); POTASSIUM 3.9 mmol/L (3.5-5.1); UREA NITROGEN, BLOOD 9 mg/dL (7-18)
[2017-10-23 11:03] LABS: ALANINE AMINOTRANSFERASE 19 U/L (16-63); ALKALINE PHOSPHATASE 63 U/L (50-136); ASPARTATE AMINOTRANSFERASE 19 U/L (15-37); BILIRUBIN,DIRECT 0.1 mg/dL (0.0-0.2); BILIRUBIN,TOTAL 0.6 mg/dL (0.2-1.0); TOTAL PROTEIN, SERUM 6.8 g/dL (6.4-8.2)
[2017-10-23] MEDS ORDERED: HYDROMORPHONE 1 MG/1 ML DISP.SYRIN IV ONE (11:45)
[2017-10-23] MEDS ORDERED: HYDROMORPHONE 2 MG/1 ML DISP.SYRIN ONE (11:47)
[2017-10-23 12:20] LABS: *BILIRUBIN,URIN NEGATIVE (NEGATIVE); *BLOOD, URINE NEGATIVE (NEGATIVE); *CLARITY,URINE CLEAR (CLEAR); *COLOR,URINE YELLOW (YELLOW); *KETONES,URINE NEGATIVE (NEGATIVE); *PROTEIN,URINE NEGATIVE (NEGATIVE); *UROBILINOGEN,URINE 0.2 E.U./dl (NORMAL); LEUKOCYTE ESTERASE ,URINE NEGATIVE (NEGATIVE); NITRITE, URINE NEGATIVE (NEGATIVE); PH,URINE 7.5 (5.0-8.0); UGLUCOSE NEGATIVE (NEGATIVE)
[2017-10-23 12:24] LABS: BACTERIA,URINE NONE SEEN /HPF (NONE SEEN); RBC,URINE 0-3 /HPF (0-3); SQUAMOUS EPITHELIAL CELL,UR FEW /HPF (NONE SEEN); WBC,URINE 0-3 /HPF (0-3)
--- NOTE | 2017-10-23 12:45 | NUR ---
PT TRANSFERED TO FLOOR IN STABLE CONDITIN, DAUGHTER AT BEDSIDE THE WHOLE ER STAY.
--- NOTE | 2017-10-23 12:55 | NUR ---
RECEIVED PATIENT FROM ER. ORIENTED TO ROOM, MADE COMFORTABLE. FAMILY AT BEDSIDE, SUPPORTIVE OF PATIENT CARE. SEEN BY Claudia STEVENSON NP WITH ORDER AND CARRIED OUT. DIET ORDERED REQUESTED. HAVING ECHO AT THIS TIME.
[2017-10-23 13:00] VITALS: BP 147/71
[2017-10-23] MEDS ORDERED: HYDROCODONE/APAP 5-325MG TABLET PO PRN (13:00)
[2017-10-23] MEDS ORDERED: DEXTROSE 50% 50 ML DISP.SYRIN IV PRN (13:00)
[2017-10-23] MEDS ORDERED: ASPIRIN EC 81 MG TABLET.DR PO SCH (13:00)
[2017-10-23] MEDS ORDERED: ONDANSETRON 4 MG/2 ML VIAL IV PRN (13:00)
[2017-10-23] MEDS ORDERED: MECLIZINE HCL 12.5 MG TABLET PO PRN (13:00)
[2017-10-23] MEDS ORDERED: ACETAMINOPHEN 325 MG TABLET PO PRN (13:00)
[2017-10-23] MEDS ORDERED: INSULIN REGULAR, HUMAN 300 UNIT/3 ML VIAL SQ PRN (13:00)
[2017-10-23] MEDS ORDERED: MORPHINE SULFATE 2 MG/1 ML DISP.SYRIN IV PRN (13:15)
[2017-10-23 15:56] VITALS: BP 117/59
--- NOTE | 2017-10-23 16:00 | NUR ---
DAUGHTER WITH PATIENT, AWARE PLAN OF CARE AND TREATMENT. APPRECIATIVE OF CARE. PATIENT AWARE TO CALL FOR HELP TO PREVENT FALL , INJURY, REINFORCED.
[2017-10-23] MEDS ORDERED: ENOXAPARIN SODIUM 30 MG/0.3 ML DISP.SYRIN SUBCUT SCH (17:15)
[2017-10-23] MEDS: BLOOD SUGAR DIAGNOSTIC 1 EACH STRIP VI SCH ×2 (17:24→20:39)
[2017-10-23] MEDS: TAMSULOSIN HCL 0.4 MG CAP.SR.24H PO SCH (17:24)
[2017-10-23] MEDS: MORPHINE SULFATE 4 MG/1 ML DISP.SYRIN IV PRN ×2 (17:26→23:23)
[2017-10-23] MEDS: METFORMIN XR 500 MG TAB.SR.24H PO SCH (18:23)
--- NOTE | 2017-10-23 19:12 | NUR ---
COMFORTABLE, RELIEF FROM PAIN RIGHT SHOULDER VERBALIZED
--- NOTE | 2017-10-23 19:30 | NUR ---
Received patient laying comfortably in bed. No acute distress noted. Farsi speaking only. TELE Pardeep at 61. C/o shoulder pain. IVF infusing on the left AC. Patient gets up to use the urinal. Bed alarm on. Bed in low and locked position. Skin is intact. Patient does not want to dress to a gown. Safety initiated. Call light within reach. Will continue to monitor.
[2017-10-23 20:00] VITALS: BP 120/60
[2017-10-23] MEDS ORDERED: SIMVASTATIN 40 MG TABLET PO SCH (21:00)
[2017-10-23] MEDS ORDERED: FINASTERIDE 5 MG TABLET PO SCH (21:00)
--- NOTE | 2017-10-23 23:53 | NUR ---
Patient c/o shoulder pain. Meds given. Will continue to monitor.
[2017-10-24] VITALS: BP 111/50
[2017-10-24 04:00] VITALS: BP 107/50
--- NOTE | 2017-10-24 05:38 | NUR ---
Patient slept intermittently t/o shift. No acute distress noted. Farsi speaking only. TELE Pardeep at 59. C/o shoulder pain meds given, stated relief. IVF infusing on the left AC. Urinating well. Bed alarm on. Bed in low and locked position. Vital Signs stable. Skin is intact. Comfort and safety measures maintained t/o shift.
[2017-10-24] MEDS: BLOOD SUGAR DIAGNOSTIC 1 EACH STRIP VI SCH ×2 (06:39→11:30)
[2017-10-24] MEDS ORDERED: PANTOPRAZOLE SODIUM 40 MG TABLET.DR PO SCH (07:00)
--- NOTE | 2017-10-24 07:25 | NUR ---
received report from hourly shift manager nruse, patient in bed asleep, no distress noted at this time, bed in low position, side rails up x2, bed alarm on.
[2017-10-24] MEDS: MORPHINE SULFATE 4 MG/1 ML DISP.SYRIN IV PRN (08:30)
[2017-10-24] MEDS: TAMSULOSIN HCL 0.4 MG CAP.SR.24H PO SCH (08:31)
[2017-10-24] MEDS: METFORMIN XR 500 MG TAB.SR.24H PO SCH (08:32)
[2017-10-24] MEDS ORDERED: [UNRECOGNIZED DRUG - OTHER] PO SCH (09:00)
[2017-10-24] MEDS ORDERED: CALCIUM CITRATE PO SCH (09:00)
[2017-10-24] MEDS ORDERED: VITAMIN D3 PO SCH (09:00)
[2017-10-24] MEDS ORDERED: OXYBUTYNIN XL 5 MG TABSR PO SCH (09:00)
[2017-10-24] MEDS ORDERED: CALCIUM CITRA-VITAMIN D 315 MG-250 UNITS TABLET PO SCH (09:00)
[2017-10-24 10:11] LABS: BASOPHILS # (AUTO) 0.1 K/uL (0.0-8.0); BASOPHILS % (AUTO) 1.1 % (0.0-2.0); EOSINOPHILS # (AUTO) 0.1 K/uL (0.0-0.7); EOSINOPHILS % (AUTO) 1.5 % (0.0-7.0); HEMATOCRIT 40.1 % (36.7-47.1); HEMOGLOBIN 14.1 g/dL (12.5-16.3); LYMPHOCYTES % (AUTO) 16.9 % (20.5-51.5); MEAN CORPUSCULAR HGB CONC 35 g/dL (32.5-36.3); MEAN CORPUSCULAR VOLUME 90.9 fL (73.0-96.2); MONOCYTES # (AUTO) 0.5 K/uL (2.0-10.0); MONOCYTES % (AUTO) 8.8 % (0.0-11.0); NEUTROPHILS # (AUTO) 4.3 K/uL (1.8-8.9); NEUTROPHILS % (AUTO) 71.7 % (38.5-71.5); PLATELET COUNT (AUTO) 236 K/uL (152-348); RED BLOOD CELL COUNT(AUTO) 4.41 MIL/uL (4.06-5.63)
[2017-10-24 10:27] LABS: ALANINE AMINOTRANSFERASE 21 U/L (16-63); ALKALINE PHOSPHATASE 58 U/L (50-136); ASPARTATE AMINOTRANSFERASE 18 U/L (15-37); BILIRUBIN,TOTAL 0.6 mg/dL (0.2-1.0); CARBON DIOXIDE 30 mmol/L (21-32); CHLORIDE 100 mmol/L (98-107); CHOLESTEROL 188 mg/dL (<200); CREATININE 0.9 mg/dL (0.6-1.3); GLUCOSE 170 mg/dL (74-106); HDL CHOLESTEROL 46 mg/dL (40-60); MAGNESIUM 1.8 mg/dL (1.8-2.4); PHOSPHOROUS 3.2 mg/dL (2.5-4.9); POTASSIUM 4.2 mmol/L (3.5-5.1); TRIGLYCERIDES 112 MG/DL (30-150); UREA NITROGEN, BLOOD 9 mg/dL (7-18)
[2017-10-24 10:36] LABS: THYROID STIMULATING HORMONE 1.659 mIU/mL (0.358-3.740)
[2017-10-24 11:36] VITALS: BP 167/73
[2017-10-24] MEDS ORDERED: hydrALAZINE HCL 25 MG TABLET PO PRN (11:45)
[2017-10-24] MEDS ORDERED: METF500T6 PO (12:10)
[2017-10-24] MEDS ORDERED: ACET325T53 PO (12:10)
[2017-10-24 12:21] VITALS: BP 149/68
--- NOTE | 2017-10-24 12:30 | NUR ---
PATIENT WAS GIVEN DISCHARGE INSTRUCTIONS, IV REMOVED, AND OFFERED TO MAKE APPOINTMENT FOR FOLLOW UP BUT FAMILY DECLINED. NO DISTRESS NOTED AT DISCHARGE, ALL QUESTIONS ANSWERED BY RAIL PROJECT ENGINEER, AND PHARMACY CONSULT PLACED. PATIENT BEING TAKEN DOWN TO DISCHARGE WITH DAUGHTER.
[2017-10-24] MEDS ORDERED: METFORMIN HCL 500 MG TABLET PO SCH (18:00)
[2017-10-24] MEDS ORDERED: ENOXAPARIN SODIUM 40 MG/0.4 ML DISP.SYRIN SQ SCH (21:00)
== END 2017-10-24 12:50 | disposition home or self-care (01) | DRG 641 ==
LOC: ER 10:03 → TELE 12:23 → MED 10-24 09:35
PROVIDERS: ADMIT Internal Medicine; ATTEND Internal Medicine
DX: E86.0 Dehydration (principal); E44.0 Moderate protein-calorie malnutrition; I50.32 Chronic diastolic (congestive) heart failure; R55 Syncope and collapse; E03.9 Hypothyroidism, unspecified; F03.90 Unspecified dementia, unspecified severity, without behavioral disturbance, psychotic disturbance, mood disturbance, and anxiety; K21.9 Gastro-esophageal reflux disease without esophagitis; Z86.73 Personal history of transient ischemic attack (TIA), and cerebral infarction without residual deficits; G89.29 Other chronic pain; M48.02 Spinal stenosis, cervical region; E04.2 Nontoxic multinodular goiter; N40.0 Benign prostatic hyperplasia without lower urinary tract symptoms; Z68.25 Body mass index [BMI] 25.0-25.9, adult; Z91.81 History of falling; D50.9 Iron deficiency anemia, unspecified; R26.81 Unsteadiness on feet; W07.XXXA Fall from chair, initial encounter; Y93.9 Activity, unspecified; Y92.009 Unspecified place in unspecified non-institutional (private) residence as the place of occurrence of the external cause; M25.511 Pain in right shoulder; M50.30 Other cervical disc degeneration, unspecified cervical region; K29.70 Gastritis, unspecified, without bleeding; E11.65 Type 2 diabetes mellitus with hyperglycemia; Z79.84 Long term (current) use of oral hypoglycemic drugs; R93.1 Abnormal findings on diagnostic imaging of heart and coronary circulation; I35.8 Other nonrheumatic aortic valve disorders; I11.0 Hypertensive heart disease with heart failure
CPT/HCPCS: 36415; 70030-TC; 70450; 71045; 72125; 73030; 83735; 84100; 84443; 85025; 85730; 93005; 93307; A4663; J1170; J1650; J1815; J2270; J2405; J7030

== ENCOUNTER 2019-01-27 15:40 | Inpatient (IN) | payer MEDICARE, OTHER ==
[~2019-01-27] VITALS: Ht 167.6 cm; Wt 68.0 kg
[~2019-01-27 15:40] MED LIST changes: +ACET325T53 PO; -LEVO5TAB13 PO; +METF-440 PO; -METF-494 PO; -OMEP20CA10 PO; +OMEP20CA11 PO
[2019-01-27 16:19] LABS: BASOPHILS % (AUTO) 0.6 % (0.0-2.0); EOSINOPHILS % (AUTO) 0.6 % (0.0-7.0); HEMATOCRIT 37.3 % (36.7-47.1); HEMOGLOBIN 12.6 g/dL (12.5-16.3); LYMPHOCYTES % (AUTO) 15.1 % (20.5-51.5); MEAN CORPUSCULAR HEMOGLOBIN 30.7 uug (23.8-33.4); MEAN CORPUSCULAR HGB CONC 34 g/dL (32.5-36.3); MEAN CORPUSCULAR VOLUME 90.5 fL (73.0-96.2); MONOCYTES # (AUTO) 0.5 K/uL (2.0-10.0); MONOCYTES % (AUTO) 7.3 % (0.0-11.0); NEUTROPHILS # (AUTO) 5.3 K/uL (1.8-8.9); NEUTROPHILS % (AUTO) 76.4 % (38.5-71.5); PLATELET COUNT (AUTO) 186 K/uL (152-348); RED BLOOD CELL COUNT(AUTO) 4.12 MIL/uL (4.06-5.63); WHITE BLOOD COUNT (AUTO) 6.9 K/uL (3.6-10.2)
[2019-01-27 16:30] LABS: ETHANOL < 3 MG/DL (0-0)
[2019-01-27 16:36] LABS: CARBON DIOXIDE 27 mmol/L (21-32); CHLORIDE 104 mmol/L (98-107); CREATININE 0.8 mg/dL (0.6-1.3); GLUCOSE 128 mg/dL (74-106); POTASSIUM 4.2 mmol/L (3.5-5.1); UREA NITROGEN, BLOOD 17 mg/dL (7-18)
[2019-01-27 16:40] LABS: ACETAMINOPHEN < 2.0 ug/mL (10-30); ALANINE AMINOTRANSFERASE 12 U/L (16-63); ALKALINE PHOSPHATASE 72 U/L (50-136); ASPARTATE AMINOTRANSFERASE 17 U/L (15-37); BILIRUBIN,DIRECT 0.1 mg/dL (0.0-0.2); BILIRUBIN,TOTAL 0.3 mg/dL (0.2-1.0); LIPASE 91 U/L (73-393)
[2019-01-27 16:43] LABS: *BILIRUBIN,URIN NEGATIVE (NEGATIVE); *BLOOD, URINE NEGATIVE (NEGATIVE); *CLARITY,URINE CLEAR (CLEAR); *COLOR,URINE YELLOW (YELLOW); *KETONES,URINE NEGATIVE (NEGATIVE); *UROBILINOGEN,URINE 0.2 E.U./dl (NORMAL); LEUKOCYTE ESTERASE ,URINE NEGATIVE (NEGATIVE); NITRITE, URINE NEGATIVE (NEGATIVE); PH,URINE 5.5 (5.0-8.0); UGLUCOSE NEGATIVE (NEGATIVE)
[2019-01-27 16:48] LABS: *AMPHETAMINE, URINE NEGATIVE (NEGATIVE); *BARBITURATE, URINE NEGATIVE (NEGATIVE); *CANNABINOID, URINE NEGATIVE (NEGATIVE); *COCCAINE, URINE NEGATIVE (NEGATIVE); *OPIATE, URINE NEGATIVE (NEGATIVE); *PHENCYCLIDINE SCREEN,URINE NEGATIVE (NEGATIVE)
[2019-01-27 16:55] LABS: THYROID STIMULATING HORMONE 1.503 mIU/mL (0.358-3.740)
[2019-01-27] MEDS ORDERED: NEOMY/BACITRA/POLYMYXIN B OINT UD PACKET TP ONE ×2 (17:36→17:45)
[2019-01-27] MEDS ORDERED: TDAP DIPH,PERTUSS,TET VAC/PF 0.5 ML DISP.SYRIN IM ONE ×2 (18:00→18:09)
[2019-01-27] MEDS ORDERED: KETOROLAC TROMETHAMINE 15 MG INJ IVP ONE (18:00)
[2019-01-27] MEDS ORDERED: KETOROLAC TROMETHAMINE 15 MG INJ ONE (18:09)
[2019-01-27] MEDS ORDERED: LIDOCAINE HCL 1% 20 ML VIAL IJ ONE (18:15)
[2019-01-27] MEDS ORDERED: LIDOCAINE HCL 1% 20 ML VIAL ONE (18:18)
[2019-01-27] MEDS ORDERED: DEXTROSE 50% 50 ML DISP.SYRIN IV PRN (19:00)
[2019-01-27] MEDS ORDERED: TEMAZEPAM 15 MG CAPSULE PO PRN (19:00)
[2019-01-27] MEDS ORDERED: MECLIZINE HCL 12.5 MG TABLET PO PRN ×2 (19:00→20:45)
[2019-01-27] MEDS ORDERED: MORPHINE SULFATE 2 MG/1 ML DISP.SYRIN IV PRN (19:00)
[2019-01-27] MEDS ORDERED: ACETAMINOPHEN 325 MG TABLET PO PRN (19:00)
[2019-01-27] MEDS ORDERED: ONDANSETRON 4 MG/2 ML VIAL IV PRN (19:00)
[2019-01-27] MEDS ORDERED: MAGNESIUM HYDROXIDE 30 ML LIQUID UDC PO PRN (19:00)
[2019-01-27] MEDS ORDERED: HYDROCODONE/APAP 5-325MG TABLET PO PRN (19:00)
[2019-01-27 20:24] VITALS: BP 164/76
[2019-01-27] MEDS: IV NS 1000 ML 1,000 ML IV PRN (20:42)
[2019-01-27] MEDS ORDERED: ENOXAPARIN SODIUM 40 MG/0.4 ML DISP.SYRIN SQ SCH (21:00)
[2019-01-27] MEDS ORDERED: SIMVASTATIN 40 MG TABLET PO SCH (21:00)
[2019-01-27] MEDS ORDERED: FINASTERIDE 5 MG TABLET PO SCH (21:00)
[2019-01-27] MEDS: BLOOD SUGAR DIAGNOSTIC 1 EACH STRIP VI SCH (22:19)
[2019-01-27] MEDS: INSULIN REGULAR, HUMAN 300 UNIT/3 ML VIAL SQ PRN (22:31)
[2019-01-28 00:26] VITALS: BP 136/69
[2019-01-28 04:39] VITALS: BP 149/64
[2019-01-28] MEDS: BLOOD SUGAR DIAGNOSTIC 1 EACH STRIP VI SCH ×2 (06:06→11:20)
[2019-01-28 06:40] LABS: BASOPHILS % (AUTO) 0.8 % (0.0-2.0); EOSINOPHILS # (AUTO) 0.1 K/uL (0.0-0.7); EOSINOPHILS % (AUTO) 1.5 % (0.0-7.0); HEMATOCRIT 39.2 % (36.7-47.1); HEMOGLOBIN 13.1 g/dL (12.5-16.3); LYMPHOCYTES # (AUTO) 1.1 K/uL (20.0-40.0); LYMPHOCYTES % (AUTO) 18.2 % (20.5-51.5); MEAN CORPUSCULAR HEMOGLOBIN 29.9 uug (23.8-33.4); MEAN CORPUSCULAR HGB CONC 33 g/dL (32.5-36.3); MEAN CORPUSCULAR VOLUME 89.3 fL (73.0-96.2); MONOCYTES # (AUTO) 0.4 K/uL (2.0-10.0); MONOCYTES % (AUTO) 6.9 % (0.0-11.0); NEUTROPHILS # (AUTO) 4.3 K/uL (1.8-8.9); NEUTROPHILS % (AUTO) 72.6 % (38.5-71.5); PLATELET COUNT (AUTO) 173 K/uL (152-348); RED BLOOD CELL COUNT(AUTO) 4.39 MIL/uL (4.06-5.63); WHITE BLOOD COUNT (AUTO) 5.9 K/uL (3.6-10.2)
[2019-01-28] MEDS ORDERED: PANTOPRAZOLE SODIUM 40 MG TABLET.DR PO SCH (07:00)
[2019-01-28 07:20] LABS: BILIRUBIN,TOTAL 0.7 mg/dL (0.2-1.0); CREATININE 0.8 mg/dL (0.6-1.3); MAGNESIUM 1.8 mg/dL (1.8-2.4); PHOSPHOROUS 3.5 mg/dL (2.5-4.9); TOTAL PROTEIN, SERUM 6.8 g/dL (6.4-8.2)
[2019-01-28 07:49] LABS: THYROID STIMULATING HORMONE 1.311 mIU/mL (0.358-3.740)
[2019-01-28] MEDS ORDERED: VITAMIN D3 PO SCH (09:00)
[2019-01-28] MEDS ORDERED: NEOMY/BACITRAC/POLYMI OINT 28.35 GM TUBE TOP SCH (09:00)
[2019-01-28] MEDS ORDERED: [UNRECOGNIZED DRUG - OTHER] PO SCH (09:00)
[2019-01-28] MEDS ORDERED: TAMSULOSIN HCL 0.4 MG CAP.SR.24H PO SCH (09:00)
[2019-01-28] MEDS ORDERED: CALCIUM CITRA-VITAMIN D 315 MG-250 UNITS TABLET PO SCH (09:00)
[2019-01-28] MEDS ORDERED: CALCIUM CITRATE PO SCH (09:00)
[2019-01-28] MEDS ORDERED: OXYBUTYNIN XL 5 MG TABSR PO SCH (09:00)
[2019-01-28 09:02] VITALS: BP_SYST 157; BP_SYST 168; BP_SYST 177; BP_DIAS 68; BP_DIAS 70; BP_DIAS 77
[2019-01-28 10:04] VITALS: BP_SYST 134; BP_SYST 144; BP_SYST 147; BP_DIAS 55; BP_DIAS 58; BP_DIAS 61
[2019-01-28] MEDS: IV NS 1000 ML 1,000 ML IV PRN (10:43)
[2019-01-28 11:02] VITALS: BP 141/51
[2019-01-28] MEDS: INSULIN REGULAR, HUMAN 300 UNIT/3 ML VIAL SQ PRN (12:11)
== END 2019-01-28 12:50 | disposition home or self-care (01) | DRG 74 ==
LOC: ER 15:41 → TELE3 19:32
PROVIDERS: ADMIT Nurse Practitioner Acute Care; ATTEND Nurse Practitioner Acute Care
PROC: 0HQ1XZZ Repair Face Skin, External Approach (ICD-10-PCS; principal; 2019-01-27)
DX: G90.8 Other disorders of autonomic nervous system (principal); D68.59 Other primary thrombophilia; S01.81XA Laceration without foreign body of other part of head, initial encounter; W18.30XA Fall on same level, unspecified, initial encounter; Y93.01 Activity, walking, marching and hiking; Y92.480 Sidewalk as the place of occurrence of the external cause; N40.0 Benign prostatic hyperplasia without lower urinary tract symptoms; Z91.81 History of falling; Z79.84 Long term (current) use of oral hypoglycemic drugs; K21.9 Gastro-esophageal reflux disease without esophagitis; K29.70 Gastritis, unspecified, without bleeding; E78.5 Hyperlipidemia, unspecified; M50.31 Other cervical disc degeneration, high cervical region; M48.02 Spinal stenosis, cervical region; G89.29 Other chronic pain; I35.0 Nonrheumatic aortic (valve) stenosis; M77.10 Lateral epicondylitis, unspecified elbow; M81.0 Age-related osteoporosis without current pathological fracture; S40.012A Contusion of left shoulder, initial encounter; Z79.899 Other long term (current) drug therapy; M19.042 Primary osteoarthritis, left hand; M19.041 Primary osteoarthritis, right hand; Z74.09 Other reduced mobility; I10 Essential (primary) hypertension; E11.65 Type 2 diabetes mellitus with hyperglycemia; E04.2 Nontoxic multinodular goiter; K64.9 Unspecified hemorrhoids; I70.0 Atherosclerosis of aorta; I67.2 Cerebral atherosclerosis; Z87.820 Personal history of traumatic brain injury
CPT/HCPCS: 36415; 70030-TC; 70450; 70486; 71045; 72125; 73090; 73110; 73130; 80307; 83605; 83690; 83735; 84100; 84443; 85025; 85730; 86850; 86900; 86901; 87040; 87086; 90715; 93005; 93307; A4217; A4663; G0378; G0480; G0480-TC; J1650; J1815; J1885; J3490; J7030

== ENCOUNTER 2019-02-05 11:02 | Emergency (ER) | payer MEDICARE, OTHER ==
[~2019-02-05] VITALS: Ht 167.6 cm; Wt 63.5 kg
--- NOTE | 2019-02-05 11:19 | NUR ---
Patient discharged to home in stable conditon. Written and verbal after care instructions given. Patient verbalizes understanding of instructions.
[2019-02-05] MEDS ORDERED: NEOMY/BACITRA/POLYMYXIN B OINT UD PACKET TP ONE (11:49)
== END 2019-02-05 11:51 | disposition home or self-care (01) ==
LOC: ER 11:06
DX: S01.81XD Laceration without foreign body of other part of head, subsequent encounter (principal); E11.9 Type 2 diabetes mellitus without complications; K21.9 Gastro-esophageal reflux disease without esophagitis; Z79.899 Other long term (current) drug therapy; X58.XXXD Exposure to other specified factors, subsequent encounter
CPT/HCPCS: A4663

== ENCOUNTER 2020-03-25 21:58 | Emergency (ER) | payer MEDICARE, OTHER ==
[~2020-03-25] VITALS: Ht 167.6 cm; Wt 65.8 kg
[~2020-03-25 21:58] MED LIST changes: +MECL-182 PO; -MECL12.582 PO; -OMEP20CA11 PO; +OMEP20CA15 PO; +SIMV-49 PO; -SIMV40TA5 PO
--- NOTE | 2020-03-25 22:09 | NUR ---
at bedside of assessment
[2020-03-25] MEDS ORDERED: MORPHINE SULFATE 4 MG/1 ML DISP.SYRIN ONE (22:41)
[2020-03-25] MEDS ORDERED: MORPHINE SULFATE 4 MG/1 ML DISP.SYRIN IM ONE (22:45)
--- NOTE | 2020-03-25 22:51 | NUR ---
Paged Dr. Lee. Awaiting call back.
[2020-03-25] MEDS ORDERED: HYDROCODONE/APAP 5-325MG TABLET PO ONE (23:15)
[2020-03-25] MEDS ORDERED: HYDROCODONE/APAP 5-325MG TABLET ONE (23:20)
--- NOTE | 2020-03-25 23:30 | NUR ---
Sling applied to right arm and shoulder
--- NOTE | 2020-03-25 23:38 | NUR ---
Patient discharged to home in stable condition. Took all belongings, wheelchaired to car and transferred, no signs of acute distress. Written and verbal after care instructions given. Patient verbalizes understanding of instructions. Stressed follow up or return to ER for worsening s/s.
[2020-03-25 23:42] VITALS: BP 141/52
== END 2020-03-25 23:40 | disposition home or self-care (01) ==
LOC: ER 22:02
DX: S42.191A Fracture of other part of scapula, right shoulder, initial encounter for closed fracture (principal); W01.0XXA Fall on same level from slipping, tripping and stumbling without subsequent striking against object, initial encounter; Y92.031 Bathroom in apartment as the place of occurrence of the external cause; K21.9 Gastro-esophageal reflux disease without esophagitis; Z79.899 Other long term (current) drug therapy; E11.9 Type 2 diabetes mellitus without complications; Z79.84 Long term (current) use of oral hypoglycemic drugs; N40.0 Benign prostatic hyperplasia without lower urinary tract symptoms
CPT/HCPCS: 71045; 73010; 73030; 73060; 96372; 99284; J2270; A4663

== ENCOUNTER 2021-02-26 16:17 | Emergency (ER) | payer MEDICARE, OTHER ==
[~2021-02-26] VITALS: Ht 167.6 cm; Wt 68.0 kg
[~2021-02-26 16:17] MED LIST changes: -MECL-182 PO; +MECL-225 PO
--- NOTE | 2021-02-26 16:47 | NUR ---
[email or web address], medical screening exam in progress
[2021-02-26] MEDS: GABAPENTIN 100 MG CAPSULE PO ONE (17:00)
[2021-02-26] MEDS ORDERED: GABAPENTIN 100 MG CAPSULE ONE (17:07)
[2021-02-26] MEDS ORDERED: DOCUSATE SODIUM 100 MG CAPSULE PO ONE (17:23)
[2021-02-26] MEDS ORDERED: ONDANSETRON 4 MG/2 ML VIAL ONE (17:23)
[2021-02-26] MEDS: MORPHINE SULFATE 2 MG/1 ML DISP.SYRIN IM ONE (17:24)
[2021-02-26] MEDS ORDERED: MORPHINE SULFATE 2 MG/1 ML DISP.SYRIN ONE (17:24)
[2021-02-26] MEDS: DOCUSATE SODIUM 100 MG CAPSULE PO ONE (17:25)
[2021-02-26] MEDS: ONDANSETRON 4 MG/2 ML VIAL IM ONE (17:25)
[2021-02-26] MEDS ORDERED: HYDR-4209 PO (17:51)
[2021-02-26] MEDS ORDERED: GABA-532 PO (17:51)
--- NOTE | 2021-02-26 18:15 | NUR ---
Patient discharged to home in stable condition with son. Written and verbal after care instructions given. Patient's son verbalized understanding of instructions. Stressed follow up or return to ER for worsening s/s. Pt appears more comfortable, son stated pain medication given in ER was effective for the pt's pain.
[2021-02-26 18:16] VITALS: BP 112/67
== END 2021-02-26 18:51 | disposition home or self-care (01) ==
LOC: ER 16:20
DX: G89.29 Other chronic pain (principal); M25.511 Pain in right shoulder; N40.0 Benign prostatic hyperplasia without lower urinary tract symptoms; E11.9 Type 2 diabetes mellitus without complications; Z79.84 Long term (current) use of oral hypoglycemic drugs; Z79.899 Other long term (current) drug therapy; K21.9 Gastro-esophageal reflux disease without esophagitis
CPT/HCPCS: 96372 ×2; 99284; J2270; J2405; A4663